=== PATIENT | female | born 1935 | race Caucasian/White ===

== ENCOUNTER 2023-04-10 21:11 | Emergency (ER) | payer MEDICARE, OTHER ==
[2023-04-10 21:35] VITALS: BP 171/96; PULSE 85
[2023-04-10] MEDS ORDERED: Ondansetron 4 MG/2 ML SDV IVPUSH ONE (21:36)
[2023-04-10] MEDS ORDERED: HYDROmorphone 0.5 MG/0.5 ML Syringe IVPUSH ONE ×2 (21:36→23:10)
[2023-04-10] MEDS ORDERED: Sodium Chloride 0.9% 10 ML Syringe FLUSH PRN (21:36)
[2023-04-10] MEDS ORDERED: HYDROmorphone 0.5 MG/0.5 ML Syringe ONE (23:07)
[2023-04-10] MEDS ORDERED: HYDROmorphone 0.5 MG/0.5 ML Syringe IV ONE (23:07)
== END 2023-04-11 00:35 ==
LOC: DL.ED 21:11
DX: S32.82XA Multiple fractures of pelvis without disruption of pelvic ring, initial encounter for closed fracture (principal); Z79.82 Long term (current) use of aspirin; Z79.899 Other long term (current) drug therapy; W01.198A Fall on same level from slipping, tripping and stumbling with subsequent striking against other object, initial encounter
CPT/HCPCS: 51702; 72192; 96374; 96375; 96376; 99285-25; J1170; J2405; J3490